=== PATIENT | female | born 1995 | race Two or more races ===

== ENCOUNTER 2022-10-25 14:12 | Emergency (ER) | payer OTHER ==
[~2022-10-25] VITALS: Ht 170.2 cm; Wt 63.5 kg
[2022-10-25] MEDS ORDERED: MACROBID 100 M100 MG PO (20:39)
== END 2022-10-25 20:42 | disposition home or self-care (01) ==
LOC: ER 14:12
DX: O20.9 Hemorrhage in early pregnancy, unspecified (principal); Z3A.01 Less than 8 weeks gestation of pregnancy

== ENCOUNTER 2022-10-28 16:26 | Emergency (ER) | payer OTHER ==
[~2022-10-28] VITALS: Ht 170.2 cm; Wt 63.5 kg
[~2022-10-28 16:26] MED LIST: MACROBID 100 M100 MG PO
== END 2022-10-28 22:12 | disposition home or self-care (01) ==
LOC: ER 16:26
DX: O46.92 Antepartum hemorrhage, unspecified, second trimester (principal); Z3A.22 22 weeks gestation of pregnancy; Z20.822 Contact with and (suspected) exposure to COVID-19